=== PATIENT | male | born 1935 | race Caucasian/White ===

== ENCOUNTER 2019-02-12 10:40 | Emergency (ER) | payer MEDICARE, OTHER, SELFPAY ==
[2019-02-12 10:45] VITALS: BP 151/65; PULSE 76; RESP 18; TEMP 36.6; O2SAT 100; BMI 26.0
--- NOTE | 2019-02-12 10:52 | DI.RAD.S_ITS ---
PROCEDURE: XR CHEST 1V INDICATIONS: fall, trauma, preop TECHNIQUE: One view of the chest was acquired. COMPARISON: None. FINDINGS: Surgical changes and devices: A right-sided cardiac pacer/defibrillator is present. Median sternotomy changes are present. Lungs and pleura: Lungs are clear. No pleural effusions or pneumothorax. Elevation of the right diaphragm is present. Mediastinum: Mediastinal contours appear normal. Heart size is normal. There is aortic atherosclerosis. Bones and chest wall: No suspicious bony lesions. Overlying soft tissues appear unremarkable. IMPRESSION: No acute cardiopulmonary process is suspected. Dictated by: Robby Garcia M.D. on 02/12/2019 at 12:14 Approved by: Robby Garcia M.D. on 02/12/2019 at 12:17
[2019-02-12 13:07] LABS: Add Manual Diff / Slide Review NO; Basophils Absolute Auto 100 /uL (0-100); Basophils Percent Auto 0.4 % (0-2); Eosinophils Absolute Auto 0 /uL (0-450); Hematocrit 35.4 % (41-53); Hemoglobin 12.2 g/dL (13.5-17.5); Lymphocytes Absolute Auto 1100 /uL (1100-4500); Mean Corpuscular HGB Conc 34.6 % (30-36); Mean Corpuscular Hemoglobin 31.8 PG (26-34); Mean Corpuscular Volume 92.1 fL (80-100); Monocytes Absolute Auto 1000 /uL (0-900); Monocytes Percent Auto 6.7 % (3-14); Neutrophils Absolute Auto 13500 /uL (1500-7000); Neutrophils Percent Auto 85.9 % (50-75); Platelet Count 207 X10^3/uL (150-400); Red Blood Cell Count 3.84 X10^6/uL (4.5-5.9); White Blood Cell Count 15.8 X10^3/uL (4.5-11.0)
[2019-02-12 13:21] LABS: Blood Urea Nitrogen 44 mg/dL (9-20); Calcium 9.6 mg/dL (8.4-10.2); Carbon Dioxide 27 mmol/L (22-32); Chloride 96 mmol/L (98-107); Creatine Kinase 181 U/L (55-170); Estimated Glomerular Filt Rate > 60.0 mL/min (>60); Glucose 126 mg/dL (80-110); HEMOLYSIS < 15 (0-50); Potassium 4.2 mmol/L (3.4-5.1); Sodium 134 mmol/L (137-145)
[2019-02-12 13:26] LABS: B Type Natriuretic Peptide 568 (<100)
[2019-02-12 13:32] LABS: Troponin I 0.019 ng/mL (0.01-0.034)
[2019-02-12 13:35] LABS: CKMB % Relative Index 1.7 % (1.5-5.0); Creatine Kinase MB 3.08 ng/mL (<2.37)
[2019-02-12 13:39] LABS: Procalcitonin < 0.05 ng/mL (<0.5)
[2019-02-12 13:45] LABS: INR 1.1 (0.9-1.3); Prothrombin Time 12.8 SECONDS (10.1-12.7)
--- NOTE | 2019-02-12 13:47 | ED_ITS ---
HPI - Male Genitourinary General Chief complaint: Urogenital-Male Stated complaint: states needs catheter in bladder Time Seen by Provider: 02/12/19 10:41 Source: patient Mode of arrival: Ambulatory Limitations: no limitations History of Present Illness HPI Narrative: 83-year-old male nonsmoker with extensive medical history including recent hospitalization for dual chamber pacemaker implantation at [facility] presents with a chief complaint of inability to urinate since last night and suprapubic pain. He had developed problems with his prior pacemaker and developed septicemia and had to be removed. He was discharged on Wednesday and doing relatively well. He denies any history of urinary retention. He denies any ongoing fever, chills nor nausea or vomiting but does feel a bit fatigued and under the weather. MD Complaint: other Onset (ago): hour(s) Duration: constant Location: abdomen Severity: moderate Quality: aching Relieving factors: none Exacerbating factors: movement Context: recent surgery Associated symptoms: Reports urinary retention and other Related Data Sexually active: No Allergies Allergy/AdvReac Type Severity Reaction Status Date / Time latex Allergy Severe Anaphylaxis Verified 02/12/19 10:55 cephalexin [From Keflex] Allergy Rash Verified 02/12/19 10:55 Review of Systems Constitutional Constitutional: Reports chills, Reports fatigue, Denies fever(s), Denies frequent falls, Denies lethargy and Denies weakness Eyes Eyes: Denies change in vision, Denies eye discharge, Denies irritation and Denies loss of vision ENT Ears, Nose, Mouth, and Throat: Denies change in voice, Denies dizziness, Denies neck pain, Denies sore throat and Denies throat swelling Cardiovascular Cardiovascular: Denies chest pain, Denies irregular heart rhythm, Denies lightheadedness, Denies palpitations, Denies dyspnea, Denies dyspnea on exertion and Denies orthopnea Respiratory Respiratory: Denies cough, Denies dyspnea, Denies dyspnea on exertion and Denies wheezing Gastrointestinal Gastrointestinal: Denies abdominal pain, Denies change in bowel habits, Denies diarrhea, Denies nausea and Denies vomiting Genitourinary Genitourinary: Denies hematuria, Denies flank pain, Denies urinary incontinence and Denies urinary urgency Musculoskeletal Musculoskeletal: Denies back pain, Denies muscle weakness, Denies neck pain, Denies numbness and Denies tingling Integumentary/Breasts Skin/Breast: Denies pruritus, Denies erythema, Denies rash and Denies wounds Neurologic Neurologic: Denies behavioral changes, Denies confusion, Denies dizziness, Denies frequent falls, Denies loss of vision, Denies numbness, Denies tingling and Denies weakness Psychiatric Psychiatric: Denies anxiety, Denies behavioral changes, Denies confusion, Denies depression, Denies homicidal ideation and Denies suicidal ideation Endocrine Endocrine: Reports fatigue, Denies flushing and Denies palpitations Hematologic/Lymphatic Hematologic/Lymphatic: Denies easy bruising Allergic/Immunologic Allergic/Immunologic: Denies urticaria, Denies throat swelling and Denies wheezing Exam Narrative Exam Narrative: GENERAL: [83] year old patient appears stated age. Well- nourished, well-developed patient, in significant distress, obviously quite uncomfortable in rubbing his suprapubic region HEAD: Atraumatic. Normocephalic. EYES: Pupils equal round and reactive. Extraocular motions intact. No scleral icterus. No injection or drainage. ENT: Nose without bleeding, purulent drainage. Throat without erythema, tonsillar hypertrophy or exudate. Airway patent. NECK: Trachea midline. Non tender CARDIOVASCULAR: Regular rate and rhythm without murmurs, gallops, or rubs. Incision clean, dry and intact RESPIRATORY: Clear to auscultation. Breath sounds equal bilaterally. No wheezes, rales, or rhonchi. GASTROINTESTINAL: Abdomen soft, non-tender, nondistended. EXTREMITIES: No edema or joint tenderness. BACK: Nontender without deformity or crepitance. No flank tenderness. NEURO: AOx3. SKIN: No rash or erythema of visible areas Initial Vital Signs Initial Vital Signs: Vital Signs Temperature 97.9 F 02/12/19 10:45 Pulse Rate 76 02/12/19 10:45 Respiratory Rate 18 02/12/19 10:45 Blood Pressure 151/65 H 02/12/19 10:45 Pulse Oximetry 100 02/12/19 10:45 Course Course Course Narrative: Bladder scan notes greater than 999 mL. Dupont catheter easily placed and a L of urine out. Patient with immediate complete relief upon completion of labs I called cardiology at [facility] to discuss patient. They recommend discharge with close follow up Orders Ordered: ED Orders 02/12/19 10:52 XR chest 1V Stat EKG-12 Lead Stat 02/12/19 12:42 B Type Natriuretic Peptide Stat Basic Metabolic Panel Stat Complete Blood Count AUTO DIFF Stat Procalcitonin Stat Troponin & CK Cardiac Panel Stat 02/12/19 13:18 Lactate (Lactic Acid) Stat Prothrombin Time INR Stat 02/12/19 13:22 Blood Culture Stat 02/12/19 14:12 Urinalysis and Microscopic Stat Urine Microscopic Stat Vital Signs Vital signs: Vital Signs - 8 hr 02/12/19 16:51 Pulse Rate 74 Respiratory Rate 14 Blood Pressure 145/70 H Pulse Oximetry 99 MDM - Male Genitourinary Lab Data Result diagrams: 02/12/19 12:42 02/12/19 12:42 Labs: Lab Results 02/12/19 02/12/19 02/12/19 Range/Units 12:42 12:42 12:42 WBC 15.8 H (4.5-11.0) X10^3/uL RBC 3.84 L (4.5-5.9) X10^6/uL Hgb 12.2 L (13.5-17.5) g/dL Hct 35.4 L (41-53) % MCV 92.1 (80-100) fL MCH 31.8 (26-34) PG MCHC 34.6 (30-36) % RDW 13.0 (11.6-14.8) % Plt Count 207 (150-400) X10^3/uL Neut % (Auto) 85.9 H (50-75) % Lymph % (Auto) 7.0 L (25-40) % Power % (Auto) 6.7 (3-14) % Eos % (Auto) 0.0 L (2-4) % Baso % (Auto) 0.4 (0-2) % Neut # (Auto) 51494 H (9526-2408) /uL Lymph # (Auto) 1100 (5483-7877) /uL Power # (Auto) 1000 H (0-900) /uL Eos # (Auto) 0 (0-450) /uL Baso # (Auto) 100 (0-100) /uL PT (10.1-12.7) SECONDS INR (0.9-1.3) Sodium 134 L (137-145) mmol/L Potassium 4.2 (3.4-5.1) mmol/L Chloride 96 L (98-107) mmol/L Carbon Dioxide 27 (22-32) mmol/L BUN 44 H (9-20) mg/dL Creatinine 1.10 (0.66-1.25) mg/dL Estimated GFR > 60.0 (>60) mL/min BUN/Creatinine Ratio 40.0 H (6-22) Glucose 126 H (80-110) mg/dL Lactate (0.7-2.1) mmol/L Calcium 9.6 (8.4-10.2) mg/dL Total Creatine Kinase 181 H (55-170) U/L CK-MB (CK-2) 3.08 H (<2.37) ng/mL CK-MB (CK-2) Rel Index 1.7 (1.5-5.0) % Troponin I 0.019 (0.01-0.034) ng/mL B-Natriuretic Peptide 568 H (<100) Procalcitonin < 0.05 (<0.5) ng/mL Urine RBC (0-5/HPF) Urine WBC (0-5/HPF) Ur Squamous Epith Cells (0-5/HPF) Amorphous Sediment Urine Bacteria (None) Ur Culture Indicated? 02/12/19 02/12/19 02/12/19 Range/Units 13:18 13:18 14:12 WBC (4.5-11.0) X10^3/uL RBC (4.5-5.9) X10^6/uL Hgb (13.5-17.5) g/dL Hct (41-53) % MCV (80-100) fL MCH (26-34) PG MCHC (30-36) % RDW (11.6-14.8) % Plt Count (150-400) X10^3/uL Neut % (Auto) (50-75) % Lymph % (Auto) (25-40) % Power % (Auto) (3-14) % Eos % (Auto) (2-4) % Baso % (Auto) (0-2) % Neut # (Auto) (4952-0001) /uL Lymph # (Auto) (9312-2576) /uL Power # (Auto) (0-900) /uL Eos # (Auto) (0-450) /uL Baso # (Auto) (0-100) /uL PT 12.8 H (10.1-12.7) SECONDS INR 1.1 (0.9-1.3) Sodium (137-145) mmol/L Potassium (3.4-5.1) mmol/L Chloride (98-107) mmol/L Carbon Dioxide (22-32) mmol/L BUN (9-20) mg/dL Creatinine (0.66-1.25) mg/dL Estimated GFR (>60) mL/min BUN/Creatinine Ratio (6-22) Glucose (80-110) mg/dL Lactate 1.3 (0.7-2.1) mmol/L Calcium (8.4-10.2) mg/dL Total Creatine Kinase (55-170) U/L CK-MB (CK-2) (<2.37) ng/mL CK-MB (CK-2) Rel Index (1.5-5.0) % Troponin I (0.01-0.034) ng/mL B-Natriuretic Peptide (<100) Procalcitonin (<0.5) ng/mL Urine RBC 1-5/hpf (0-5/HPF) Urine WBC 1-5/hpf (0-5/HPF) Ur Squamous Epith Cells 0-1 /hpf (0-5/HPF) Amorphous Sediment 1+ Urine Bacteria None seen (None) Ur Culture Indicated? Cult not indicated Urine Dip Bedside Urine Glucose Negative Bedside Urine Bilirubin - Negative Bedside Urine Ketone +/- 5 Urine Specific Baldwin 1.015 Bedside Urine Occult Blood ++ Bedside Urine pH 6.0 Bedside Urine Protein +/- 15 Bedside Urine Leukocytes - Negative Esterase Critical Care Time Critical Care Time Total Critical Care Time: 30 Discharge Plan Departure Patient Disposition: Home Clinical Impression: Acute urinary retention Discharge Date/Time: 02/12/19 16:30 Instructions: DI for Urinary Retention in Men Activity Restrictions/Additional Instructions: *You have been diagnosed with [acute urinary retention] *What to do: * continue to take medications as directed *Follow up with your primary care provider in 2-3 days, call for an appointment. Let them know you were seen in the Emergency Department and that we ask that you be seen in follow up *Return to ER if you should have any new, worsening or concerning symptoms, such as [fever, shaking chills, chest pain, shortness of breath, unexplained sweating or other bothersome symptoms] Referrals: [facility] [Outside] Alie Dozier MD [Non-Staff] - Tj Pathak MD [Primary Care Provider] -
[2019-02-12 13:48] LABS: Lactate (Lactic Acid) 1.3 mmol/L (0.7-2.1)
[2019-02-12 14:13] LABS: Bacteria Urine None Seen
[2019-02-12 14:37] LABS: Amorphous Sediment Urine 1+; Culture Indicated Urine Cult Not Indicated; RBC Urine 1-5/HPF (0-5/HPF); Squamous Epithelial Cell Urine 0-1 /HPF (0-5/HPF); WBC Urine 1-5/HPF (0-5/HPF)
[2019-02-12 16:51] VITALS: BP 145/70; PULSE 74; RESP 14; O2SAT 99
== END 2019-02-12 16:30 | disposition home or self-care (01) ==
PROVIDERS: Emergency Provider Emergency Medicine; PCP Family Medicine
DX: R33.9 Retention of urine, unspecified (principal); Z95.0 Presence of cardiac pacemaker
CPT/HCPCS: 36415; 51701; 51798; 71045; 80048; 81003; 81015; 82550; 82553; 83605; 83880; 84145; 84484; 85025; 85610; 87040; 93005; 99283; 99285

== ENCOUNTER 2019-02-17 10:40 | Emergency (ER) | payer MEDICARE, OTHER, SELFPAY ==
[2019-02-17 11:00] VITALS: BP 140/72; PULSE 67; RESP 22; TEMP 37.7; O2SAT 99
--- NOTE | 2019-02-17 11:25 | PC.NURSE ---
Patient has extensive bruising (healing/yellowed) to right upper chest with the placement of a pacemaker. Pt here for retention and bladder dicomfort and distention since solomon was removed yesterday.
[2019-02-17 11:29] LABS: Appearance Urine UA CLOUDY; Bilirubin Urine UA NEGATIVE (NEGATIVE); Color Urine UA YELLOW; Glucose Urine UA NEGATIVE (Negative); Ketones Urine UA NEGATIVE (NEGATIVE); Leukocyte Esterase Urine UA 3+ (NEGATIVE); Nitrite Urine UA POSITIVE (Negative); Occult Blood Urine UA 2+ (Negative); Protein Urine UA 2+ (Negative); Urobilinogen Urine UA 0.2 E.U./dL (0.2); pH Urine UA 8.5 (4.5-8.0)
[2019-02-17 11:35] LABS: Amorphous Sediment Urine 2+; Bacteria Urine Many (>30); Culture Indicated Urine Specimen Cultured; RBC Urine 1-5/HPF (0-5/HPF); WBC Urine 10-30/HPF (0-5/HPF)
[2019-02-17 11:36] VITALS: BP 102/51; PULSE 87; O2SAT 99
[2019-02-17] MEDS: ACETAMINOPHEN 325 MG TABLET 650 MG PO (11:38)
--- NOTE | 2019-02-17 11:42 | ED_ITS ---
HPI - Male Genitourinary <KEVIN Carlisle - Last Filed: 02/17/19 13:51> General Chief complaint: Urogenital-Male Stated complaint: burning/urgency/full bladder/cath removed yest. Time Seen by Provider: 02/17/19 10:58 Source: patient Mode of arrival: Ambulatory Limitations: no limitations History of Present Illness HPI Narrative: The patient is an 83-year-old male nonsmoker with an extensive medical history including sepsis and recent dual-chamber pacemaker implantation at [facility] as well as urinary retention who presents with a chief complaint of continued urinary retention. He was seen at this facility on 02 12 and was found to have significant urinary retention of over 1 L. He had a Dupont catheter inserted. He had that removed at his primary care office yesterday. He states he was barely able to urinate after, and woke up early this morning with a sensation that he was unable to urinate. He states he thinks he was blocked. Of note he was started on Bactrim for urinary tract infection by his PCP yesterday. He denies any significant fevers nausea vomiting or diarrhea. He states he last moved his bowels yesterday. He states he had some suprapubic pain with his urinary retention, but that has improved since the catheter was inserted upon his arrival. Upon arrival his bladder scan was over 1 L, so a urinary catheter was inserted. He states he previously had dysuria, which is why he was started on antibiotics for urinary tract infection. He states he was scheduled for his pacemaker follow-up today. Related Data Home Medications Medication Instructions Recorded Confirmed atorvastatin 40 mg PO DAILY 02/17/19 02/17/19 hydrocortisone 1 applic TOPICAL DIRECTED 02/17/19 02/17/19 lisinopril-hydrochlorothiazide 1 tab PO DAILY 02/17/19 Allergies Allergy/AdvReac Type Severity Reaction Status Date / Time latex Allergy Severe Anaphylaxis Verified 02/12/19 10:55 cephalexin [From Keflex] Allergy Rash Verified 02/12/19 10:55 Review of Systems <KEVIN Carlisle - Last Filed: 02/17/19 13:51> Review of Systems Narrative: GENERAL: See HPI HEENT: Denies sinus pain, ear pain, sore throat, difficulty swallowing, dizziness. RESPIRATORY: Denies dyspnea, cough, wheezing, hemoptysis, sputum. CARDIOVASCULAR: Denies chest pain, palpitations, orthopnea, edema, GASTROINTESTINAL: See HPI : Denies dysuria, frequency, incontinence, hematuria, urinary retention. MUSCULOSKELETAL: denies weakness, joint pain, or bony pain SKIN: See HPI NEUROLOGIC: Denies weakness, headache, numbness, change in speech, confusion, seizures, incoordination. PSYCHIATRIC: No concerning psychosocial issues. 12 point review of systems is negative except for those stated above Exam <ANDREA Carlisle-BC - Last Filed: 02/17/19 13:51> Narrative Exam Narrative: GENERAL: This is a well-nourished, well-developed patient, in no acute distress HEAD: Atraumatic. Normocephalic. No temporal or scalp tenderness. EYES: Pupils equal round and reactive. Extraocular motions intact. No scleral icterus. No injection or drainage. ENT: Nose without bleeding, purulent drainage or septal hematoma. Throat without erythema, tonsillar hypertrophy or exudate. Uvula midline. Airway patent. NECK: Trachea midline. No JVD or lymphadenopathy. Supple, nontender, no meningeal signs. CARDIOVASCULAR: Regular rate and rhythm RESPIRATORY: Clear to auscultation. Breath sounds equal bilaterally. No wheezes, rales, or rhonchi. No cough. No increased respiratory effort. No accessory muscle use. GASTROINTESTINAL: Abdomen soft, non-tender, nondistended. No hepato- splenomegaly, or palpable masses. No guarding. Active bowel sounds all [address] quadrants. Dupont catheter in place draining cloudy urine. EXTREMITIES: No clubbing, cyanosis, or edema. No joint tenderness, effusion, or edema noted. BACK: Nontender without deformity or crepitance. No flank tenderness. NEURO: AOx3. SKIN: No rash or erythema on visible skin Initial Vital Signs Initial Vital Signs: Vital Signs Temperature 99.8 F H 02/17/19 11:00 Pulse Rate 67 02/17/19 11:00 Respiratory Rate 22 02/17/19 11:00 Blood Pressure 140/72 02/17/19 11:00 Pulse Oximetry 99 02/17/19 11:00 <Angelic Rosas DO - Last Filed: 02/18/19 07:13> Initial Vital Signs Initial Vital Signs: Vital Signs Temperature 99.8 F H 02/17/19 11:00 Pulse Rate 67 11/22/19 11:00 Respiratory Rate 22 02/17/19 11:00 Blood Pressure 140/72 02/17/19 11:00 Pulse Oximetry 99 02/17/19 11:00 Course <KEVIN Carlisle - Last Filed: 02/17/19 13:51> Orders Ordered: Discontinued Medications Acetaminophen (Tylenol) 650 mg PO NOW ONE Stop: 02/17/19 11:33 Last Admin: 02/17/19 11:38 Dose: 650 mg Documented by: MACHO Vital Signs Vital signs: Vital Signs - 8 hr 02/17/19 11:00 02/17/19 11:36 02/17/19 12:09 Temperature 99.8 F H Pulse Rate 67 87 80 Respiratory Rate 22 Blood Pressure 140/72 Blood Pressure [Left Arm] 102/51 L 114/54 L Pulse Oximetry 99 99 99 02/17/19 12:30 02/17/19 13:19 Temperature 98.4 F Pulse Rate 79 79 Respiratory Rate 21 24 Blood Pressure 110/47 L Blood Pressure [Left Arm] 110/47 L Pulse Oximetry 95 <Angelic Rosas DO - Last Filed: 02/18/19 07:13> Orders Ordered: Discontinued Medications Acetaminophen (Tylenol) 650 mg PO NOW ONE Stop: 02/17/19 11:33 Last Admin: 02/17/19 11:38 Dose: 650 mg Documented by: MACHO Vital Signs Vital signs: Vital Signs - 8 hr 02/17/19 11:00 02/17/19 11:36 02/17/19 12:09 Temperature 99.8 F H Pulse Rate 67 87 80 Respiratory Rate 22 Blood Pressure 140/72 Blood Pressure [Left Arm] 102/51 L 114/54 L Pulse Oximetry 99 99 99 02/17/19 12:30 02/17/19 13:19 Temperature 98.4 F Pulse Rate 79 79 Respiratory Rate 21 24 Blood Pressure 110/47 L Blood Pressure [Left Arm] 110/47 L Pulse Oximetry 95 MDM - Male Genitourinary <KEVIN Carlisle - Last Filed: 02/17/19 13:51> Lab Data Result diagrams: 02/17/19 11:55 02/17/19 11:55 Labs: Lab Results 02/17/19 02/17/19 02/17/19 Range/Units 11:18 11:55 11:55 WBC 13.4 H (4.5-11.0) X10^3/uL RBC 3.69 L (4.5-5.9) X10^6/uL Hgb 11.7 L (13.5-17.5) g/dL Hct 34.1 L (41-53) % MCV 92.4 (80-100) fL MCH 31.7 (26-34) PG MCHC 34.3 (30-36) % RDW 12.7 (11.6-14.8) % Plt Count 243 (150-400) X10^3/uL Neut % (Auto) 91.8 H (50-75) % Lymph % (Auto) 3.2 L (25-40) % [place] % (Auto) 4.7 (3-14) % Eos % (Auto) 0.0 L (2-4) % Baso % (Auto) 0.3 (0-2) % Neut # (Auto) 37071 H (5000-4364) /uL Lymph # (Auto) 400 L (8095-0678) /uL [place] # (Auto) 600 (0-900) /uL Eos # (Auto) 0 (0-450) /uL Baso # (Auto) 0 (0-100) /uL Sodium (137-145) mmol/L Potassium (3.4-5.1) mmol/L Chloride (98-107) mmol/L Carbon Dioxide (22-32) mmol/L BUN (9-20) mg/dL Creatinine (0.66-1.25) mg/dL Estimated GFR (>60) mL/min BUN/Creatinine Ratio (6-22) Glucose (80-110) mg/dL Calcium (8.4-10.2) mg/dL Total Bilirubin (0.2-1.3) mg/dL AST (17-59) IU/L ALT (<50) IU/L Alkaline Phosphatase (38-126) U/L Total Protein (6.3-8.2) g/dL Albumin (3.5-5.0) g/dL Globulin (1.7-4.1) g/dL Albumin/Globulin Ratio (1.0-2.8) Procalcitonin < 0.05 (<0.5) ng/mL Urine Color Yellow Urine Appearance Cloudy Urine pH 8.5 H (4.5-8.0) Ur Specific [place] 1.010 (1.000-1.035) Urine Protein 2+ H (Negative) Urine Glucose (UA) Negative (Negative) g/dL Urine Ketones Negative (NEGATIVE) Urine Occult Blood 2+ H (Negative) Urine Nitrate Positive (Negative) Urine Bilirubin Negative (NEGATIVE) Urine Urobilinogen 0.2 (0.2) E.U./dL Ur Leukocyte Esterase 3+ H (NEGATIVE) Urine RBC 1-5/hpf (0-5/HPF) Urine WBC 10-30/hpf H (0-5/HPF) Amorphous Sediment 2+ Urine Bacteria Many (>30) H (None) Ur Culture Indicated? Specimen cultured 02/17/19 Range/Units 11:55 WBC (4.5-11.0) X10^3/uL RBC (4.5-5.9) X10^6/uL Hgb (13.5-17.5) g/dL Hct (41-53) % MCV (80-100) fL MCH (26-34) PG MCHC (30-36) % RDW (11.6-14.8) % Plt Count (150-400) X10^3/uL Neut % (Auto) (50-75) % Lymph % (Auto) (25-40) % [place] % (Auto) (3-14) % Eos % (Auto) (2-4) % Baso % (Auto) (0-2) % Neut # (Auto) (6057-7284) /uL Lymph # (Auto) (5947-6563) /uL [place] # (Auto) (0-900) /uL Eos # (Auto) (0-450) /uL Baso # (Auto) (0-100) /uL Sodium 132 L (137-145) mmol/L Potassium 4.2 (3.4-5.1) mmol/L Chloride 96 L (98-107) mmol/L Carbon Dioxide 26 (22-32) mmol/L BUN 34 H (9-20) mg/dL Creatinine 1.10 (0.66-1.25) mg/dL Estimated GFR > 60.0 (>60) mL/min BUN/Creatinine Ratio 30.9 H (6-22) Glucose 126 H (80-110) mg/dL Calcium 9.0 (8.4-10.2) mg/dL Total Bilirubin 0.9 (0.2-1.3) mg/dL AST 31 (17-59) IU/L ALT 24 (<50) IU/L Alkaline Phosphatase 87 (38-126) U/L Total Protein 6.9 (6.3-8.2) g/dL Albumin 4.1 (3.5-5.0) g/dL Globulin 2.8 (1.7-4.1) g/dL Albumin/Globulin Ratio 1.5 (1.0-2.8) Procalcitonin (<0.5) ng/mL Urine Color Urine Appearance Urine pH (4.5-8.0) Ur Specific [place] (1.000-1.035) Urine Protein (Negative) Urine Glucose (UA) (Negative) g/dL Urine Ketones (NEGATIVE) Urine Occult Blood (Negative) Urine Nitrate (Negative) Urine Bilirubin (NEGATIVE) Urine Urobilinogen (0.2) E.U./dL Ur Leukocyte Esterase (NEGATIVE) Urine RBC (0-5/HPF) Urine WBC (0-5/HPF) Amorphous Sediment Urine Bacteria (None) Ur Culture Indicated? Urine Dip Bedside Urine Glucose Negative Bedside Urine Bilirubin - Negative Bedside Urine Ketone - Negative Urine Specific [place] 1.005 Bedside Urine Occult Blood + Bedside Urine pH 8.0 Bedside Urine Protein ++ 100 Bedside Urine Urobilinogen - Negative Bedside Urine Nitrite + Positive Bedside Urine Leukocytes +++ 500 Esterase MDM Narrative Medical decision making narrative: The patient is an 83-year-old male who presents with a chief complaint of continued urinary retention. He had has Dupont catheter removed yesterday, and was unable to urinate. He subsequently bladder scan for over Liter. A catheter was inserted. His suspicious that he has urinary tract infection, though this was noted by his PCP and started on Bactrim yesterday. Urine cultures pending at this time, but I will not change treatment at this point time. His procalcitonin is negative, his white blood cell count is normalizing compared to his visit on 02/12. The patient felt much improved after his catheter was reinserted. I discussed at length following up with primary care provider in the next few days. Discussed monitoring for signs and symptoms of worsening infection including fever, inability keep down fluids flank pain and coming back to the emergency department for any acute concerns. Patient states understanding return precautions and follow-up care and has no questions or concerns upon discharge <Angelic Rosas DO - Last Filed: 02/18/19 07:13> Lab Data Labs: Lab Results 02/17/19 02/17/19 02/17/19 Range/Units 11:18 11:55 11:55 WBC 13.4 H (4.5-11.0) X10^3/uL RBC 3.69 L (4.5-5.9) X10^6/uL Hgb 11.7 L (13.5-17.5) g/dL Hct 34.1 L (41-53) % MCV 92.4 (80-100) fL MCH 31.7 (26-34) PG MCHC 34.3 (30-36) % RDW 12.7 (11.6-14.8) % Plt Count 243 (150-400) X10^3/uL Neut % (Auto) 91.8 H (50-75) % Lymph % (Auto) 3.2 L (25-40) % [place] % (Auto) 4.7 (3-14) % Eos % (Auto) 0.0 L (2-4) % Baso % (Auto) 0.3 (0-2) % Neut # (Auto) 23597 H (8698-6388) /uL Lymph # (Auto) 400 L (8592-1332) /uL [place] # (Auto) 600 (0-900) /uL Eos # (Auto) 0 (0-450) /uL Baso # (Auto) 0 (0-100) /uL Sodium (137-145) mmol/L Potassium (3.4-5.1) mmol/L Chloride (98-107) mmol/L Carbon Dioxide (22-32) mmol/L BUN (9-20) mg/dL Creatinine (0.66-1.25) mg/dL Estimated GFR (>60) mL/min BUN/Creatinine Ratio (6-22) Glucose (80-110) mg/dL Calcium (8.4-10.2) mg/dL Total Bilirubin (0.2-1.3) mg/dL AST (17-59) IU/L ALT (<50) IU/L Alkaline Phosphatase (38-126) U/L Total Protein (6.3-8.2) g/dL Albumin (3.5-5.0) g/dL Globulin (1.7-4.1) g/dL Albumin/Globulin Ratio (1.0-2.8) Procalcitonin < 0.05 (<0.5) ng/mL Urine Color Yellow Urine Appearance Cloudy Urine pH 8.5 H (4.5-8.0) Ur Specific [place] 1.010 (1.000-1.035) Urine Protein 2+ H (Negative) Urine Glucose (UA) Negative (Negative) g/dL Urine Ketones Negative (NEGATIVE) Urine Occult Blood 2+ H (Negative) Urine Nitrate Positive (Negative) Urine Bilirubin Negative (NEGATIVE) Urine Urobilinogen 0.2 (0.2) E.U./dL Ur Leukocyte Esterase 3+ H (NEGATIVE) Urine RBC 1-5/hpf (0-5/HPF) Urine WBC 10-30/hpf H (0-5/HPF) Amorphous Sediment 2+ Urine Bacteria Many (>30) H (None) Ur Culture Indicated? Specimen cultured 02/17/19 Range/Units 11:55 WBC (4.5-11.0) X10^3/uL RBC (4.5-5.9) X10^6/uL Hgb (13.5-17.5) g/dL Hct (41-53) % MCV (80-100) fL MCH (26-34) PG MCHC (30-36) % RDW (11.6-14.8) % Plt Count (150-400) X10^3/uL Neut % (Auto) (50-75) % Lymph % (Auto) (25-40) % [place] % (Auto) (3-14) % Eos % (Auto) (2-4) % Baso % (Auto) (0-2) % Neut # (Auto) (7419-8572) /uL Lymph # (Auto) (2855-0711) /uL [place] # (Auto) (0-900) /uL Eos # (Auto) (0-450) /uL Baso # (Auto) (0-100) /uL Sodium 132 L (137-145) mmol/L Potassium 4.2 (3.4-5.1) mmol/L Chloride 96 L (98-107) mmol/L Carbon Dioxide 26 (22-32) mmol/L BUN 34 H (9-20) mg/dL Creatinine 1.10 (0.66-1.25) mg/dL Estimated GFR > 60.0 (>60) mL/min BUN/Creatinine Ratio 30.9 H (6-22) Glucose 126 H (80-110) mg/dL Calcium 9.0 (8.4-10.2) mg/dL Total Bilirubin 0.9 (0.2-1.3) mg/dL AST 31 (17-59) IU/L ALT 24 (<50) IU/L Alkaline Phosphatase 87 (38-126) U/L Total Protein 6.9 (6.3-8.2) g/dL Albumin 4.1 (3.5-5.0) g/dL Globulin 2.8 (1.7-4.1) g/dL Albumin/Globulin Ratio 1.5 (1.0-2.8) Procalcitonin (<0.5) ng/mL Urine Color Urine Appearance Urine pH (4.5-8.0) Ur Specific [place] (1.000-1.035) Urine Protein (Negative) Urine Glucose (UA) (Negative) g/dL Urine Ketones (NEGATIVE) Urine Occult Blood (Negative) Urine Nitrate (Negative) Urine Bilirubin (NEGATIVE) Urine Urobilinogen (0.2) E.U./dL Ur Leukocyte Esterase (NEGATIVE) Urine RBC (0-5/HPF) Urine WBC (0-5/HPF) Amorphous Sediment Urine Bacteria (None) Ur Culture Indicated? Urine Dip Bedside Urine Glucose Negative Bedside Urine Bilirubin - Negative Bedside Urine Ketone - Negative Urine Specific [place] 1.005 Bedside Urine Occult Blood + Bedside Urine pH 8.0 Bedside Urine Protein ++ 100 Bedside Urine Urobilinogen - Negative Bedside Urine Nitrite + Positive Bedside Urine Leukocytes +++ 500 Esterase Discharge Plan Departure Patient Disposition: Home Clinical Impression: Acute urinary retention Urinary tract infection Qualifiers: Urinary tract infection type: site unspecified Hematuria presence: with hematuria Qualified Code(s): N39.0 - Urinary tract infection, site not specified Discharge Date/Time: 02/17/19 13:27 Instructions: How to Care for Your Dupont Catheter -- Male, DI for Urinary Tract Infection (UTI), DI for Urinary Retention in Men Activity Restrictions/Additional Instructions: Please follow up with primary care provider in the next few days. We have reinserted a Dupont catheter due to retention. It is possible that you may need to have the infection treated before the Dupont can come out, or may need a urology referral. I suggest that you continue the Bactrim that was started yesterday at this point time. We have a urine culture pending and we will contact you the next few days if we need to change the antibiotic. Please monitor for fevers, flank pain, inability keep down fluids as these are all signs of worsening infection. Prescriptions: No Action atorvastatin 40 mg tablet 40 mg PO DAILY RF: 0 lisinopril-hydrochlorothiazide 20-25 mg tablet 1 tab PO DAILY RF: 0 hydrocortisone 2.5 % cream 1 applic TOPICAL DIRECTED RF: 0 Referrals: Tj Pathak MD [Primary Care Provider] -
[2019-02-17 12:01] LABS: Add Manual Diff / Slide Review NO; Basophils Absolute Auto 0 /uL (0-100); Basophils Percent Auto 0.3 % (0-2); Eosinophils Absolute Auto 0 /uL (0-450); Hematocrit 34.1 % (41-53); Hemoglobin 11.7 g/dL (13.5-17.5); Lymphocytes Absolute Auto 400 /uL (1100-4500); Lymphocytes Percent Auto 3.2 % (25-40); Mean Corpuscular HGB Conc 34.3 % (30-36); Mean Corpuscular Hemoglobin 31.7 PG (26-34); Mean Corpuscular Volume 92.4 fL (80-100); Monocytes Absolute Auto 600 /uL (0-900); Monocytes Percent Auto 4.7 % (3-14); Neutrophils Absolute Auto 12300 /uL (1500-7000); Neutrophils Percent Auto 91.8 % (50-75); Platelet Count 243 X10^3/uL (150-400); Red Blood Cell Count 3.69 X10^6/uL (4.5-5.9); Red Cell Distribution Width 12.7 % (11.6-14.8); White Blood Cell Count 13.4 X10^3/uL (4.5-11.0)
[2019-02-17 12:09] VITALS: BP 114/54; PULSE 80; O2SAT 99
[2019-02-17 12:13] LABS: Alanine Aminotransferase 24 IU/L (<50); Albumin 4.1 g/dL (3.5-5.0); Albumin Globulin Ratio 1.5 (1.0-2.8); Alkaline Phosphatase 87 U/L (38-126); Aspartate Aminotransferase 31 IU/L (17-59); BUN Creatinine Ratio 30.9 (6-22); Bilirubin Total 0.9 mg/dL (0.2-1.3); Blood Urea Nitrogen 34 mg/dL (9-20); Carbon Dioxide 26 mmol/L (22-32); Chloride 96 mmol/L (98-107); Estimated Glomerular Filt Rate > 60.0 mL/min (>60); Globulin 2.8 g/dL (1.7-4.1); Glucose 126 mg/dL (80-110); HEMOLYSIS < 15 (0-50); Potassium 4.2 mmol/L (3.4-5.1); Sodium 132 mmol/L (137-145); Total Protein 6.9 g/dL (6.3-8.2)
[2019-02-17 12:30] VITALS: BP 110/47; PULSE 79; RESP 21
[2019-02-17 12:32] LABS: Procalcitonin < 0.05 ng/mL (<0.5)
[2019-02-17 13:19] VITALS: BP 110/47; PULSE 79; RESP 24; TEMP 36.9; O2SAT 95
== END 2019-02-17 13:27 | disposition home or self-care (01) ==
PROVIDERS: Emergency Provider Nurse Practitioner Family; PCP Family Medicine
DX: R33.9 Retention of urine, unspecified (principal); N39.0 Urinary tract infection, site not specified; Z95.5 Presence of coronary angioplasty implant and graft
CPT/HCPCS: 36415; 51701; 51798; 80053; 81001; 81003; 84145; 85025; 87077; 87086; 87186; 99283

== ENCOUNTER → 2019-09-11 14:49 | Outpatient (CLI) | payer MEDICARE, OTHER, SELFPAY ==
[2019-09-12 08:57] LABS: COVID19 Sendout Not Detected (Not Detect)
== END ==
PROVIDERS: PCP Family Medicine; Visit Provider Physician Assistant
DX: Z01.812 Encounter for preprocedural laboratory examination (principal)
CPT/HCPCS: 87635

== ENCOUNTER → 2019-09-23 11:21 | Outpatient (CLI) | payer MEDICARE, OTHER, SELFPAY ==
[2019-09-24 10:32] LABS: COVID19 Sendout Not Detected (Not Detect)
== END ==
PROVIDERS: PCP Family Medicine; Visit Provider Physician Assistant
DX: Z11.59 Encounter for screening for other viral diseases (principal)
CPT/HCPCS: 87635

== ENCOUNTER → 2020-04-22 10:39 | Outpatient (CLI) | payer MEDICARE, SELFPAY ==
--- NOTE | 2020-04-22 | DI.CT.S_ITS ---
PROCEDURE: CT HEAD/BRAIN WO CON INDICATIONS: unsteadiness TECHNIQUE: Noncontrast 4.5 mm thick angled axial sections acquired from the foramen magnum to the vertex, with coronal and sagittal reformats. For radiation dose reduction, the following was used: automated exposure control, adjustment of mA and/or kV according to patient size. COMPARISON: [facility], MR, MR BRAIN WITH/WITHOUT CONTRAST, 04/19/2020, 12:10. FINDINGS: Image quality: Excellent. CSF spaces: Basal cisterns are patent. No extra-axial fluid collections. The ventricles are symmetric in size and shape. Brain: No intracranial bleeds or masses. There is cerebral volume loss for age, with resultant ventricular and sulcal prominence. 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 There are periventricular and deep white matter chronic small vessel ischemic changes. There is intracranial internal carotid artery atherosclerosis. Skull and face: Calvarium and visualized facial bones appear intact, without suspicious lesions. Sinuses: There is an air-fluid level seen within the left maxillary sinus. The paranasal sinuses otherwise appear clear. No abnormal fluid is seen within the mastoid air cells. IMPRESSION: No imaging explanation is found for this patient's presenting symptoms. 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 Focal left maxillary sinus disease incidentally noted. Dictated by: Shane Rose M.D. on 04/22/2020 at 11:21 Approved by: Shane Rose M.D. on 04/22/2020 at 11:22
== END ==
PROVIDERS: PCP Family Medicine; Referring Provider Family Medicine; Visit Provider Family Medicine
DX: R41.3 Other amnesia (principal); R26.81 Unsteadiness on feet; J32.0 Chronic maxillary sinusitis; Z86.73 Personal history of transient ischemic attack (TIA), and cerebral infarction without residual deficits
CPT/HCPCS: 70450

== ENCOUNTER → 2023-10-12 11:59 | Outpatient (CLI) | payer MEDICARE, SELFPAY ==
--- NOTE | 2023-10-12 12:00 | DI.US.S_ITS ---
PROCEDURE: US ABDOMEN LIMITED INDICATIONS: RIGHT INGUINAL PAIN,RT LOWER QUADRANT PAIN TECHNIQUE: Real-time focused scanning was performed of the abdomen, with image documentation. COMPARISON: None. FINDINGS: Within the right inguinal region, there are several prominent lymph nodes seen. The largest of these measures 13 mm in short axis. IMPRESSION: Enlarged right groin lymph nodes, with the largest measuring 13 mm in short axis. Please correlate with potential inflammatory change. Differential diagnosis includes metastatic lymph nodes. Dictated by: Shane Rose M.D. on 10/12/2023 at 13:06 Approved by: Shane Rose M.D. on 10/12/2023 at 13:07
== END ==
PROVIDERS: PCP Family Medicine; Referring Provider Family Medicine; Visit Provider Family Medicine
DX: R10.31 Right lower quadrant pain (principal); R59.0 Localized enlarged lymph nodes
CPT/HCPCS: 76705

== ENCOUNTER 2023-10-16 12:10 | Emergency (ER) | payer MEDICARE, SELFPAY ==
[2023-10-16] VITALS (9 sets, daily range): BP systolic 156–188; BP diastolic 67–77; PULSE 61–66; RESP 16–20; TEMP 36.9; O2SAT 96–99; BMI 23.0
--- NOTE | 2023-10-16 12:40 | ED.GENADULT ---
HPI - General Adult General Chief complaint: Urogenital-Male Stated complaint: Urinary Retention Time Seen by Provider: 10/16/23 12:20 Source: patient, EMS and other Mode of arrival: EMS History of Present Illness HPI narrative: 88-year-old male who arrives for evaluation of urinary retention. He is thinks that it has been over 24 hours since the last time he urinated. He has had urinary retention in the past but he states it was several years ago. He was currently on doxycycline for right lower extremity cellulitis. He states he has been drinking mentioned fluids. Related Data Home Medications Medication Instructions Recorded Confirmed atorvastatin 40 mg tablet 40 mg PO DAILY 02/17/19 02/17/19 hydrocortisone 2.5 % topical cream 1 applic topical DIRECTED 02/17/19 02/17/19 lisinopril 20 1 tab PO DAILY 02/17/19 mg-hydrochlorothiazide 25 mg tablet Previous Rx's Medication Instructions Recorded alfuzosin 10 mg tablet,extended 10 mg PO DAILY #30 tabs 08/28/20 release 24 hr Allergies Allergy/AdvReac Type Severity Reaction Status Date / Time latex Allergy Severe Anaphylaxis Verified 10/16/23 12:20 cephalexin [From Keflex] Allergy Rash Verified 10/16/23 12:20 Review of Systems Constitutional Constitutional: Reports system reviewed and no additional complaints, except as documented Gastrointestinal Gastrointestinal: Reports system reviewed and no additional complaints, except as documented Genitourinary Genitourinary: Reports system reviewed and no additional complaints, except as documented Integumentary/Breasts Skin/Breast: Reports system reviewed and no additional complaints, except as documented Patient History Social History Smoking Status: Former smoker Smoking Status: Former smoker Substance Use Type: does not use Exam Initial Vital Signs Initial Vital Signs: Vital Signs Temperature 98.4 F 10/16/23 12:10 Pulse Rate 62 10/16/23 12:10 Respiratory Rate 16 10/16/23 12:10 Blood Pressure 181/70 H 10/16/23 12:10 Pulse Oximetry 98 10/16/23 12:10 Oxygen Delivery Method Room Air 10/16/23 12:10 Const General: cooperative and comfortable GI Other: Fullness in the lower abdomen Other: Normal external male genitalia Skin General: no rashes or lesions noted Neuro General: patient alert, patient awake and moves all extremities Course Orders Ordered: Discontinued Medications Lidocaine HCl (Lidocaine 2% (Glydo) 6 Ml Gel) 6 ml TOP NOW ONE Stop: 10/16/23 12:27 Last Admin: 10/16/23 12:51 Dose: 6 ml Documented By: KADI Vital Signs Vital signs: Vital Signs - 8 hr 10/16/23 12:10 10/16/23 12:11 10/16/23 12:14 Temperature 98.4 F Pulse Rate 62 65 Respiratory Rate 16 16 Blood Pressure 181/70 H 181/70 H Pulse Oximetry 98 96 Oxygen Delivery Method Room Air Room Air 10/16/23 12:14 10/16/23 12:20 10/16/23 12:20 Temperature Pulse Rate 61 65 Respiratory Rate Blood Pressure 188/77 H Pulse Oximetry 98 98 Oxygen Delivery Method 10/16/23 12:30 10/16/23 12:31 10/16/23 12:31 Temperature Pulse Rate 63 64 Respiratory Rate 20 Blood Pressure Pulse Oximetry 98 98 Oxygen Delivery Method Room Air 10/16/23 12:47 10/16/23 12:47 10/16/23 13:00 Temperature Pulse Rate 66 65 Respiratory Rate Blood Pressure 173/73 H Pulse Oximetry 98 99 Oxygen Delivery Method 10/16/23 13:01 10/16/23 13:01 Temperature Pulse Rate 65 Respiratory Rate 16 Blood Pressure 156/67 H Pulse Oximetry 98 Oxygen Delivery Method Room Air Medical Decision Making MDM Narrative Medical decision making narrative: Patient did have greater than 1 L of urine on the bladder scan. A Dupont catheter was placed and greater than 1500 cc of urine resulted. He was currently on an antibiotic for right lower extremity cellulitis. Will discharge patient home with a Dupont catheter in place and instructions to follow-up with urology. Discharge Plan Departure Patient Disposition: Home Clinical Impression: Acute retention of urine Instructions: How to Care for Your Dupont Catheter -- Male, DI for Urinary Retention in Men Activity Restrictions/Additional Instructions: I do recommend that you continue to take all of your medications as directed. Recommend that you follow-up with urology. You can contact them with the number provided below. Return to the emergency department for new symptoms Prescriptions: No Action alfuzosin 10 mg tablet extended release 24 hr 10 mg PO DAILY Qty: 30 3RF Rx Instructions: administer after the same meal each day atorvastatin 40 mg tablet 40 mg PO DAILY lisinopril-hydrochlorothiazide 20-25 mg tablet 1 tab PO DAILY hydrocortisone 2.5 % cream 1 applic TOPICAL DIRECTED Referrals: Mar Lewis MD [Physician] - Tj Pathak MD [Primary Care Provider] - Stand Alone Forms: Patient Portal/API
[2023-10-16] MEDS: LIDOCAINE 2% (GLYDO) 6 ML GEL TOP (12:51)
--- NOTE | 2023-10-16 13:11 | PC.NURSE ---
cath clamped briefly. will reassess shortly.
== END 2023-10-16 13:50 | disposition home or self-care (01) ==
PROVIDERS: Emergency Provider Emergency Medicine; PCP Family Medicine
DX: R33.9 Retention of urine, unspecified (principal)
CPT/HCPCS: 51702; 51798; 99283